=== PATIENT | male | born 1995 | race Caucasian/White ===

== ENCOUNTER → 2018-09-22 | Outpatient (CLI) | payer OTHER | LOC: COL.RAD 08:32 | DX: R01.1 Cardiac murmur, unspecified (principal); I10 Essential (primary) hypertension | CPT/HCPCS: Q9967 ==

== ENCOUNTER → 2018-09-23 | Outpatient (CLI) | payer OTHER | LOC: COL.RAD 08:21 | DX: I10 Essential (primary) hypertension (principal); R01.1 Cardiac murmur, unspecified | CPT/HCPCS: Q9967 ==

== ENCOUNTER 2018-09-29 12:38 | Outpatient (CLI) | payer OTHER ==
[~2018-09-29] VITALS: Ht 177.8 cm; Wt 92.6 kg
[2018-09-29 13:20] LABS: HEMATOCRIT 42.5 % (42.0-52.0); HEMOGLOBIN 14.6 g/dl (13.5-18.0); MEAN CELL VOLUME 88 fl (80.0-100.0); MEAN CORPUSCULAR HEMOGLOBIN 30 pg (27.0-31.0); MEAN CORPUSCULAR HGB CONC 34 g/dl (33.0-37.0); PLATELET COUNT 238 K/mm3 (130-400); RED BLOOD COUNT 4.83 M/mm3 (4.20-5.60); REDCELL DISTRIBUTION WIDTH-CV 12.3 % (11.5-14.5)
[2018-09-29 13:24] LABS: PROTHROMBIN TIME 11.5 SECONDS (9.7-12.8)
[2018-09-29 13:26] VITALS: BP 148/84; PULSE 64; TEMP 97.4
[2018-09-29 13:28] LABS: CALCIUM 9.6 mg/dL (8.4-10.2); CREATININE, serum 1.06 mg/dL (0.66-1.25); POTASSIUM 3.8 mmol/L (3.4-5.0)
[2018-09-29] MEDS ORDERED: COZAAR 50MG50 MG/TAB PO (13:30)
[2018-09-29 15:10] VITALS: BP 126/69; PULSE 60
[2018-09-29 15:30] VITALS: BP 119/58; PULSE 52
[2018-09-29 15:40] VITALS: BP 124/69; PULSE 51
[2018-09-29 15:50] VITALS: BP 120/57; PULSE 54
== END 2018-09-29 16:06 | disposition home or self-care (01) ==
LOC: COL.RAD 12:38
PROVIDERS: Internal Medicine Cardiovascular Disease
DX: I34.0 Nonrheumatic mitral (valve) insufficiency (principal)
CPT/HCPCS: G9654; J2250; J2704; J7030